=== PATIENT | female | born 1975 | race Caucasian/White ===

== ENCOUNTER 2022-07-13 08:47 | Outpatient (CLI) | payer BC, SELFPAY ==
[2022-07-13 10:04] LABS: Basophils Percent Auto 0.4 % (0.0-3.0); Eosinophils Percent Auto 1.6 % (0.0-7.0); Hematocrit 46.1 % (33.0-51.0); Hemoglobin* 14.7 gm/dL (12.0-16.0); Mean Corpuscular HGB Conc 32 gm/dL (32-36); Mean Corpuscular Hemoglobin 27 pg (26-34); Mean Corpuscular Volume 85 fL (80-100); Platelet Count* 366 K/uL (140-440); Red Blood Count 5.42 m/uL (4.00-5.20); White Blood Count* 13.27 K/uL (4.50-11.00)
[2022-07-13 10:06] LABS: Slide Review Reflex No
[2022-07-13 10:24] LABS: Hemoglobin A1C* 8.1 % (0-5.6)
[2022-07-13 14:12] LABS: Creatinine Urine 273.6 mg/dL
[2022-07-13 14:15] LABS: Microalbumin Creatinine Ratio 30 mg/g (0-30); Microalbumin Urine 10 mg/dL
[2022-07-13 15:56] LABS: Albumin* 4.2 g/dL (3.3-5.0); Chloride* 101 mmol/L (96-114); Sodium* 137 mmol/L (135-149)
[2022-07-13 15:57] LABS: Potassium* 4.3 mmol/L (3.6-5.1)
[2022-07-13 15:58] LABS: Carbon Dioxide* 28 mmol/L (20-32); Cholesterol* 156 mg/dL (90-199); Creatinine* 0.9 mg/dL (0.5-1.5); Estimated Glomerular Filt Rate 81 ml/min
[2022-07-13 15:59] LABS: Alanine Aminotransferase* 24 U/L (4-35); Alkaline Phosphatase* 97 U/L (40-150); Aspartate Amino Transferase* 20 U/L (12-35); Bilirubin Total* 0.5 mg/dL (0.1-1.5); Blood Urea Nitrogen* 17 mg/dL (5-24); Calcium* 9.4 mg/dL (8.4-10.6); Glucose* 127 mg/dL (60-115); Total Protein* 7.3 g/dL (6.0-8.3); Triglycerides* 103 mg/dL (40-149)
[2022-07-13 16:00] LABS: HDL Cholesterol* 47 mg/dL (>=50); LDL Cholesterol Calculated 88 mg/dL (<100)
== END 2022-07-13 08:48 | disposition home or self-care (01) ==
PROVIDERS: PCP Physician Assistant; Visit Provider Physician Assistant Medical
DX: Z00.00 Encounter for general adult medical examination without abnormal findings (principal); E11.9 Type 2 diabetes mellitus without complications; I10 Essential (primary) hypertension; E66.9 Obesity, unspecified; R53.83 Other fatigue; D72.829 Elevated white blood cell count, unspecified; N92.0 Excessive and frequent menstruation with regular cycle; F41.9 Anxiety disorder, unspecified
CPT/HCPCS: 80053; 80061; 82043; 82570; 83036; 84443; 85025

== ENCOUNTER 2022-10-27 20:17 | Emergency (ER) | payer BC, SELFPAY ==
[2022-10-27 20:27] VITALS: BP 124/85; PULSE 78; RESP 20; TEMP 36.7; O2SAT 98; BMI 42.3
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
--- NOTE | 2022-10-27 21:11 | CRLHL7_ITS ---
For Patients: As a result of the Century Cures Act, medical imaging exams and procedure reports are released immediately into your electronic medical record. You may view this report before your referring provider. If you have questions, please contact your health care provider. INDICATION: Left mandibular swelling. TECHNIQUE: CT of the neck without contrast agent. Coronal and sagittal reconstructions are included. COMPARISON: None. FINDINGS: Asymmetric enlargement of the left submandibular gland with surrounding inflammatory change. Large 14 millimeter radiodense sialolith within the left sublingual space, compatible with an obstructive Roberto`s duct stone. Several mildly enlarged lymph nodes within the left neck, likely reactive. The nasopharyngeal, oropharyngeal and hypopharyngeal spaces are normal. The supraglottic, glottic and infraglottic larynx are normal. The airway including the trachea is normal and is patent. The parotid glands, right submandibular and sublingual glands are normal in appearance. The thyroid gland is normal in appearance. No suspicious lytic or blastic osseous lesions. Scattered cervical spondylosis without significant bony neural foraminal stenosis. No periapical dental disease. Visualized paranasal sinuses and mastoid air cells are clear. Visualized orbital and intracranial contents are normal. Supraclavicular regions, mediastinum and soft tissues of the imaged chest wall are normal. Visualized portions of the upper lungs are clear. IMPRESSION: 1. Findings compatible with left submandibular sialoadenitis, with large 14 millimeter sialolith located within left-sided Naguabo`s duct. Please note that all CT scans at this facility use dose modulation, iterative reconstruction, and/or weight-based dosing when appropriate to reduce radiation dose to as low as reasonably achievable. Dictated by Lan Lombardi MD @ 10/28/2022 11:13:22 AM (Electronically Signed)
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
[2022-10-27 22:51] VITALS: BP 135/89; PULSE 81; RESP 16; O2SAT 95
[2022-10-27] MEDS: DOXYCYCLINE HYCLATE 100 MG PO (23:04)
== END 2022-10-27 23:10 | disposition home or self-care (01) ==
LOC: ED 22:56
PROVIDERS: Emergency Provider Family Medicine; PCP Family Medicine
DX: R22.1 Localized swelling, mass and lump, neck (principal); S80.12XA Contusion of left lower leg, initial encounter; Y04.2XXA Assault by strike against or bumped into by another person, initial encounter
CPT/HCPCS: 70490; 93971; 99284; A9270

== ENCOUNTER 2022-12-06 11:12 | Outpatient (CLI) | payer BC, SELFPAY | END 2022-12-06 11:13 | disposition home or self-care (01) | LOC: LKVREF 11:15 | PROVIDERS: PCP Family Medicine; Visit Provider Physician Assistant Medical | DX: E11.9 Type 2 diabetes mellitus without complications (principal); M79.662 Pain in left lower leg; I10 Essential (primary) hypertension; E66.9 Obesity, unspecified; R53.83 Other fatigue | CPT/HCPCS: 82607 ==

== ENCOUNTER 2023-08-02 16:40 | Outpatient (CLI) | payer BC, SELFPAY ==
[2023-08-03 00:23] LABS: Chlamydia DNA Amplified* NOT DETECTED (No Detected); GC DNA Amplified* NOT DETECTED (No Detected)
== END 2023-08-02 16:41 | disposition home or self-care (01) ==
LOC: LKVREF 16:40
PROVIDERS: PCP Physician Assistant Medical; Visit Provider Physician Assistant Medical
DX: Z11.3 Encounter for screening for infections with a predominantly sexual mode of transmission (principal)
CPT/HCPCS: 87491; 87591

== ENCOUNTER 2023-11-16 08:45 | Outpatient (CLI) | payer BC, SELFPAY ==
--- NOTE | 2023-11-16 08:45 | CRLHL7_ITS ---
For Patients: As a result of the Century Cures Act, medical imaging exams and procedure reports are released immediately into your electronic medical record. You may view this report before your referring provider. If you have questions, please contact your health care provider. BILATERAL SCREENING MAMMOGRAM WITH COMPUTER-AIDED DETECTION AND TOMOSYNTHESIS TECHNIQUE: CC and MLO views were obtained. These mammographic images have been obtained using full-field digital technique. These mammographic images were interpreted with the benefit of computer-aided detection. Breast Tomosynthesis was used in this interpretation. COMPARISON FILM: 06/10/21, 04/30/20, 06/07/18. FINDINGS: There are scattered areas of fibroglandular density IMPRESSION: There is no radiographic evidence for malignancy. ASSESSMENT: BI-RADS Category 1: Negative RECOMMENDATION: Routine screening mammogram in 1 year. A lay language report of this examination will be provided to the patient. Rolando Pruett M.D. Diagnostic Radiologist [email or web address] TAD/Dictated by: Rolando Pruett MD @ 11/16/2023 1:51:00 PM (Electronically Signed)
== END 2023-11-16 08:46 | disposition home or self-care (01) ==
PROVIDERS: PCP Physician Assistant Medical; Visit Provider Physician Assistant Medical
DX: Z12.31 Encounter for screening mammogram for malignant neoplasm of breast (principal)
CPT/HCPCS: 77063; 77067